=== PATIENT | female | born 1955 | race Caucasian/White ===

== ENCOUNTER 2016-07-13 18:50 | Emergency (ER) | payer OTHER ==
[~2016-07-13] VITALS: Ht 160 cm; Wt 54.4 kg
[~2016-07-13 18:50] MED LIST: FLUO20CA36 PO; GABA-532 PO; GABA300C PO; METH5TAB2 PO
--- NOTE | 2016-07-13 19:00 | NUR ---
DEL 58 FROM [facility] C/O COUGH WITH CONGESTION X 2 WEEKS, PATIENT IS AAO4, APPEARS IN NO APPARENT DISTRESS, HOWEVER PATIENT IS SATING 89% ON ROOM AIR. NOTED COUGHING AND CONGESTED,. SKIN IS WARM TO TOUCH AND NON DIAPHORETIC,. PATIENT IS AFEBRILE. O2 PROVIDED VIA NC. CONNECTED PT TO TELE MONITOR. WILL CONT TO MONITOR
--- NOTE | 2016-07-13 19:28 | NUR ---
report given to Ed nurse
--- NOTE | 2016-07-13 19:29 | NUR ---
assumed care. received report from am shift elizabeth richter. pt sitting up in bed c/o L arm pain and headache. pt aaox4 no acute distress noted, resp even and unlabored. pt on cardiac monitoring, continuous pox, o2@2l/nc. pending lab result.
[2016-07-13 19:38] LABS: BASOPHILS # (AUTO) 0.1 /CMM (0.0-0.2); BASOPHILS % (AUTO) 0.6 % (0.0-2.0); EOSINOPHILS # (AUTO) 0.1 /CMM (0.0-0.7); EOSINOPHILS % (AUTO) 0.8 % (0.0-6.0); HEMATOCRIT 33 % (33-45); HEMOGLOBIN 10.6 g/dL (11.5-14.8); LYMPHOCYTES % (AUTO) 13.1 % (20.0-44.0); MEAN CORPUSCULAR HEMOGLOBIN 30 PG (26.0-33.0); MEAN CORPUSCULAR HGB CONC 32 g/dl (31.0-36.0); MEAN CORPUSCULAR VOLUME 93 fL (82-100); MONOCYTES # (AUTO) 0.7 /CMM (0.1-1.30); MONOCYTES % (AUTO) 4.7 % (2.0-12.0); NEUTROPHILS # (AUTO) 12.6 /CMM (1.8-8.9); NEUTROPHILS % (AUTO) 80.8 % (43.0-81.0); PLATELET COUNT (AUTO) 380 /CMM (150-450); RDW COEFFICIENT OF VARIATION 15.2 (11.5-15.0); RED BLOOD CELL COUNT(AUTO) 3.54 MIL/uL (4.0-5.2); WHITE BLOOD COUNT (AUTO) 15.5 K/uL (4.3-11.0)
[2016-07-13 19:42] LABS: CALCIUM, SERUM 8.7 mg/dL (8.5-10.1); CARBON DIOXIDE 23 mmol/L (21-32); CHLORIDE 106 mmol/L (98-107); CREATININE 0.6 mg/dL (0.6-1.3); GLUCOSE 105 mg/dL (74-106); SODIUM SERUM 142 mmol/L (136-145); UREA NITROGEN, BLOOD 7 mg/dL (7-18)
[2016-07-13 19:55] LABS: ALANINE AMINOTRANSFERASE 26 U/L (12-78); ALBUMIN 2.8 g/dL (3.4-5.0); ALKALINE PHOSPHATASE 177 U/L (46-116); ASPARTATE AMINOTRANSFERASE 32 U/L (15-37); BILIRUBIN,DIRECT 0.1 mg/dL (0.0-0.2); BILIRUBIN,TOTAL 0.4 mg/dL (0.2-1.0); TOTAL PROTEIN, SERUM 7.8 g/dL (6.4-8.2)
[2016-07-13 20:03] LABS: TROPONIN I < 0.017 ng/mL (0.00-0.056)
--- NOTE | 2016-07-13 20:22 | NUR ---
CALLED [facility], PRESENTED PT, AWAITING CALL BACK FROM [facility]
[2016-07-13] MEDS ORDERED: MORPHINE SULFATE INJ 2 MG/ML DISP.SYRIN ONE ×2 (20:23→22:15)
[2016-07-13] MEDS ORDERED: ONDANSETRON HCL/PF 4 MG/2 ML VIAL ONE (20:23)
--- NOTE | 2016-07-13 20:23 | NUR ---
pt still c/o headache and L arm pain. er md made aware with orders received.
[2016-07-13] MEDS ORDERED: IV SET PRIMARY 1 EA INFUS.SET MC ONE ×3 (20:24→21:44)
[2016-07-13] MEDS ORDERED: IV NS 0.9% 1,000 ML ONE (20:24)
--- NOTE | 2016-07-13 20:29 | NUR ---
pt medicated by rn per er md order.
[2016-07-13] MEDS ORDERED: ONDANSETRON HCL/PF - ER 4 MG/2 ML VIAL IV ONE (20:30)
[2016-07-13] MEDS ORDERED: MORPHINE SULFATE INJ 2 MG/ML DISP.SYRIN IV ONE ×2 (20:30→22:00)
[2016-07-13] MEDS ORDERED: IV NS 0.9% 1,000 ML BAG IV ONE (20:30)
--- NOTE | 2016-07-13 20:32 | NUR ---
portia casey spoke to noel wolf casey regarding pt.
[2016-07-13] MEDS ORDERED: CEFTRIAXONE 1GM BAG (ER ONLY) 50 ML IV ONE (20:49)
[2016-07-13] MEDS ORDERED: IV SET PRIMARY PUMP SET 1 EA INFUS.SET MC ONE (20:49)
[2016-07-13] MEDS ORDERED: IV D5W 250 ML IV ONE (20:49)
[2016-07-13] MEDS ORDERED: AZITHROMYCIN 500 MG VIAL ONE (20:49)
[2016-07-13] MEDS ORDERED: CEFTRIAXONE 1 G in IV D5W 50 ML IV ONE (21:00)
[2016-07-13] MEDS ORDERED: AZITHROMYCIN 500 MG in IV D5W 250 ML IV ONE (21:00)
[2016-07-13] MEDS ORDERED: IV NS 0.9% 500 ML BAG IV ONE (21:30)
[2016-07-13] MEDS ORDERED: IV NS 0.9% 500 ML IV ONE (21:44)
--- NOTE | 2016-07-13 21:45 | NUR ---
RECIEVED CALL FROM [facility], PT ACCEPTED TO [facility] ROOM 3315-A BY , NUMBER FOR REPORT IS [phone], [facility] SHOULD ARRIVE BY [phone]
[2016-07-13] MEDS ORDERED: POTASSIUM CHLORIDE 20 MEQ TAB.PRT.SR PO ONE ×2 (22:00→22:15)
--- NOTE | 2016-07-13 22:27 | NUR ---
report called to [facility] Raul Morrow. awaiting transport.
[2016-07-13 22:29] VITALS: BP 137/98
--- NOTE | 2016-07-13 22:58 | NUR ---
[facility] at bedside report given to paramedics johny. pt transported to [facility] via acls protocol.
== END 2016-07-13 23:04 | disposition short-term general hospital (02) ==
LOC: ER 18:50
DX: J18.9 Pneumonia, unspecified organism (principal); A41.9 Sepsis, unspecified organism; R65.21 Severe sepsis with septic shock; D64.9 Anemia, unspecified; E87.6 Hypokalemia; J44.9 Chronic obstructive pulmonary disease, unspecified; C44.90 Unspecified malignant neoplasm of skin, unspecified; F32.9 Major depressive disorder, single episode, unspecified; B19.20 Unspecified viral hepatitis C without hepatic coma; F17.200 Nicotine dependence, unspecified, uncomplicated; Z88.2 Allergy status to sulfonamides
CPT/HCPCS: 36415; 71010; 80048; 80076; 83605 ×2; 84484; 85025; 87040; 93005; 96361; 96365 ×2; 96375; 99291; 99406; A4606; J0456; J0696; J2270 ×2; J2405; J7030; J7040; J7060; Z7610

== ENCOUNTER 2016-08-10 14:57 | Emergency (ER) | payer MEDICAID ==
[~2016-08-10] VITALS: Ht 160 cm; Wt 54.0 kg
--- NOTE | 2016-08-10 14:16 | NUR ---
ALMA gave pt. list of resources to alcohol and drug treatment programs that included [facility] , [facility] , etc. Addendum: 08/11/16 at 0810 by CRYSTAL MARQUEZ Correction: Time pt. was given resources was 16:16PM.
--- NOTE | 2016-08-10 15:08 | NUR ---
PT BIB [facility] C/O ETOH INTOX. A/OX4. VERBALLY RESPONSIVE. DENIES COMPLAINTS. NOTED WITH HYPOTENSION, ASYMPTOMATIC. IN ER BED 10 ON MONITOR.
[2016-08-10] MEDS ORDERED: IV SET PRIMARY 1 EA INFUS.SET MC ONE (15:44)
[2016-08-10] MEDS ORDERED: IV NS 0.9% 1,000 ML ONE (15:44)
[2016-08-10 15:50] LABS: BASOPHILS % (AUTO) 0.5 % (0.0-2.0); EOSINOPHILS # (AUTO) 0.1 /CMM (0.0-0.7); EOSINOPHILS % (AUTO) 1.8 % (0.0-6.0); HEMATOCRIT 33 % (33-45); HEMOGLOBIN 11.1 g/dL (11.5-14.8); LYMPHOCYTES # (AUTO) 1.4 /CMM (0.8-4.8); LYMPHOCYTES % (AUTO) 24.4 % (20.0-44.0); MEAN CORPUSCULAR HEMOGLOBIN 30 PG (26.0-33.0); MEAN CORPUSCULAR HGB CONC 34 g/dl (31.0-36.0); MEAN CORPUSCULAR VOLUME 89 fL (82-100); MONOCYTES # (AUTO) 0.4 /CMM (0.1-1.30); MONOCYTES % (AUTO) 7.5 % (2.0-12.0); NEUTROPHILS # (AUTO) 3.7 /CMM (1.8-8.9); NEUTROPHILS % (AUTO) 65.8 % (43.0-81.0); PLATELET COUNT (AUTO) 247 /CMM (150-450); RDW COEFFICIENT OF VARIATION 14.5 (11.5-15.0); RED BLOOD CELL COUNT(AUTO) 3.72 MIL/uL (4.0-5.2); WHITE BLOOD COUNT (AUTO) 5.6 K/uL (4.3-11.0)
--- NOTE | 2016-08-10 15:56 | NUR ---
CALLED FOR MEAL TRAY
[2016-08-10] MEDS ORDERED: IV NS 0.9% 1,000 ML BAG IV ONE (16:00)
[2016-08-10 16:01] LABS: CALCIUM, SERUM 7.9 mg/dL (8.5-10.1); CREATININE 0.7 mg/dL (0.6-1.3); POTASSIUM 3.6 mmol/L (3.5-5.1)
--- NOTE | 2016-08-10 16:15 | NUR ---
SW received a call from SAE Orellana in ER requesting to provide Alcohol and drug treatment resources to pt. SW met with pt. bedside. Pt. is alert and orientedx3. Pt. informed SW she resides at [facility] and was in treatment. Pt. was unclear as to if she lived at [facility] currently or was in an alcohol treatment program. Pt. called [facility] and spoke to victim witness administrator Caro who informed SW that pt. left [facility] and was in treatment at [facility]. Caro informed SW to contact pt's sister and inquire where she wants pt. to go. ALMA contacted pt's sister with SAE Rico present and left her a voicemail message informing her to contact Pt's SAE Rico in ED regarding pt's discharge plan since SW was leaving for the day.
--- NOTE | 2016-08-10 16:20 | NUR ---
CRYSTAL, RACK WORKER, AT BEDSIDE. PROVIDED WITH RESOURCES.
--- NOTE | 2016-08-10 17:25 | NUR ---
Patient discharged to home in stable condition. Written and verbal after care instructions given. Patient verbalizes understanding of instruction. IV removed. Catheter intact and site benign. Pressure and 4x4 applied to site. No bleeding noted. AMBULATORY WITH STEADY GAIT.
[2016-08-10 17:27] VITALS: BP 110/72
--- NOTE | 2016-08-11 08:39 | NUR ---
ALMA received a voicemail from Yenny Davis, inquiring where pt. was discharged. ALMA called Yenny who informed SW that she is a student records coordinator that works with pt's brother. According to Yenny, Pt. was residing at [facility] and was sent to Det[facility] at [facility] a week ago. Pt. was going to be admitted to the inpatient residential treatment program, however pt. went AMA from facility and got drunk and fell and ended up at [facility] ED. According to Yenny, pt. has a long history of alcohol abuse and opioid addiction. Yenny informed ALMA that pt. did end up going to [facility] last night after being discharged from [facility] ED.
== END 2016-08-10 17:28 | disposition home or self-care (01) ==
LOC: ER 15:01
DX: F10.129 Alcohol abuse with intoxication, unspecified (principal); E86.0 Dehydration; E11.9 Type 2 diabetes mellitus without complications; F32.9 Major depressive disorder, single episode, unspecified; I27.2 Other secondary pulmonary hypertension; J44.9 Chronic obstructive pulmonary disease, unspecified; F17.200 Nicotine dependence, unspecified, uncomplicated; B19.20 Unspecified viral hepatitis C without hepatic coma; Z85.828 Personal history of other malignant neoplasm of skin; Z88.2 Allergy status to sulfonamides
CPT/HCPCS: 36415; 80048-TC; 85025-TC; A4606; G0480; J7030; Z7610